=== PATIENT | male | born 1950 | race Caucasian/White ===

== ENCOUNTER 2017-09-21 14:39 | Emergency (ER) | payer MEDICARE ==
[2017-09-21] MEDS ORDERED: Lidocaine 1% 20 ML MDV ONE (14:55)
--- NOTE | 2017-09-21 15:44 | RAD ---
RIGHT FOREARM RADIOGRAPHS TWO VIEWS: 09/21/17 PROVIDED CLINICAL HISTORY: Right forearm laceration. FINDINGS: There is no evidence for fracture or other acute osseous abnormality. Soft tissue irregularity and alana cency involves the posterior right forearm compatible with the provided clinical history of laceratio n. There is no evidence for radiopaque foreign body. Vascular calcifications are seen. IMPRESSION: No evidence for an acute osseous abnormality or radiopaque foreign body. POS: [facility]
[2017-09-21] MEDS ORDERED: Bacitracin Zinc 1 Packet ONE (15:45)
[2017-09-21] MEDS ORDERED: Amoxicillin/Potassium Clav 875 MG TAB ONE (15:47)
== END 2017-09-21 16:00 | disposition home or self-care (01) ==
LOC: NAV ERS 14:39
DX: S51.811A Laceration without foreign body of right forearm, initial encounter (principal); E11.9 Type 2 diabetes mellitus without complications; E78.5 Hyperlipidemia, unspecified; Z87.891 Personal history of nicotine dependence; Z79.82 Long term (current) use of aspirin; Z79.84 Long term (current) use of oral hypoglycemic drugs; Z79.899 Other long term (current) drug therapy; W55.12XA Struck by horse, initial encounter
CPT/HCPCS: 12032; J2001

== ENCOUNTER 2017-09-23 19:20 | Emergency (ER) | payer MEDICARE | END 2017-09-23 20:16 | disposition left against medical advice (07) | LOC: NAV ERS 19:20 | DX: Z53.21 Procedure and treatment not carried out due to patient leaving prior to being seen by health care provider (principal) ==

== ENCOUNTER 2017-10-01 23:40 | Emergency (ER) | payer MEDICARE ==
[2017-10-02] MEDS ORDERED: Adacel (T-DAP) 0.5 ML VIAL ONE (00:14)
[2017-10-02] MEDS ORDERED: Bacitracin Zinc 1 Packet ONE (00:28)
== END 2017-10-02 00:33 | disposition home or self-care (01) ==
LOC: NAV ERS 23:40
DX: S51.811D Laceration without foreign body of right forearm, subsequent encounter (principal); I10 Essential (primary) hypertension; E78.5 Hyperlipidemia, unspecified; Z23 Encounter for immunization; X58.XXXD Exposure to other specified factors, subsequent encounter
CPT/HCPCS: 90471; 90715